=== PATIENT | female | born 1940 | race Caucasian/White ===

== ENCOUNTER 2024-06-03 08:33 | Outpatient (CLI) | payer OTHER, SELFPAY ==
--- NOTE | ~2024-06-03 | XR_ITS ---
3 VIEWS THORACIC SPINE Ordering provider: David Pinedo MD History: . Age-related osteoporosis with current pathological fracture, . Comparison: None. FINDINGS: VERTEBRAL BODIES: Mild S-shaped scoliosis. Degenerative changes of the spine. Vertebroplasty in T9. O therwise, Normal height and alignment. No visible acute fracture or subluxation. DISK SPACES: Multilevel degenerative disc disease. SOFT TISSUES: Normal. IMPRESSION: No acute osseous abnormality of the thoracic spine. Multilevel degenerative disc disease. Reviewed, dictated and finalized at location A. [facility]
--- NOTE | ~2024-06-03 | XR_ITS ---
3 VIEWS LUMBAR SPINE Ordering provider: David Pinedo MD History: . Age-related osteoporosis with current pathological fracture, . Comparison: None. FINDINGS: VERTEBRAL BODIES:Levoscoliosis. Degenerative changes of the spine. No definite visible fracture or s ubluxation. DISK SPACES: Multilevel degenerative disc disease involving all the disc spaces. Multilevel facet omid nt disease. SOFT TISSUES: Atherosclerotic changes of the aorta. IMPRESSION: No acute osseous abnormality lumbar spine. Multilevel degenerative disc disease. Reviewed, dictated and finalized at location A. [facility]
== END 2024-06-03 08:34 | disposition home or self-care (01) ==
LOC: MICIMG 08:37
PROVIDERS: PCP Pain Medicine Pain Medicine; Visit Provider Pain Medicine Pain Medicine
DX: M80.08XS Age-related osteoporosis with current pathological fracture, vertebra(e), sequela (principal); M51.369 Other intervertebral disc degeneration, lumbar region without mention of lumbar back pain or lower extremity pain; M51.34 Other intervertebral disc degeneration, thoracic region
CPT/HCPCS: 72070; 72100